=== PATIENT | female | born 1965 | race Caucasian/White ===

== ENCOUNTER 2017-10-27 00:56 | Emergency (ER) | payer MEDICARE, MEDICAID ==
[2017-10-27] MEDS ORDERED: LORazepam INJ* 2 MG/ML 1 ML VIAL IV PUSH ONE (01:09)
[2017-10-27] MEDS ORDERED: Metoprolol Tartrate IV* 1 MG/ML 5 ML VIAL IV ONE (01:09)
[2017-10-27] MEDS ORDERED: NS 0.9% 1000 ML* 1,000 ML IV ONE (01:09)
[2017-10-27 02:03] VITALS: BP 101/60
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
== END 2017-10-27 02:22 | disposition home or self-care (01) ==
LOC: ED 00:56
DX: R00.0 Tachycardia, unspecified (principal); F41.9 Anxiety disorder, unspecified; F17.200 Nicotine dependence, unspecified, uncomplicated; Z88.5 Allergy status to narcotic agent
CPT/HCPCS: 93005; 96374; 96375; 99282; J2060; J3490

== ENCOUNTER 2018-10-14 15:29 | Emergency (ER) | payer MEDICAID, MEDICARE ==
[2018-10-14] MEDS ORDERED: LORazepam TAB(*) 1 MG PO ONE (16:23)
[2018-10-14] MEDS ORDERED: NS 0.9% 1000 ML** 1,000 ML IV ONE (16:23)
--- NOTE | 2018-10-14 16:28 | ED ---
HPI Cardiac - HPI Summary HPI Summary: Patient is a 52 y/o F presenting to ED with complaints of rapid heart rate, palpitations. EMS reported HR in 140s, 86 on arrival. PMHx of anxiety, patient notes that she ran out of Klonopin five days ago. Patient claims that she has not been able to get a refill for her medication. She notes similar episode a year ago, states that she was diagnosed with anxiety at the time. Patient denies chest pain but endorses some dizziness. No Hx of GA, HTN, DVT, PE. PMHx of Psoriasis, smoker, PTSD, anxiety, depression. She is on atrovastatin for HLD , smokes a pack of cigarettes daily. On triage, pain is denied, nothing is noted to aggravate/alleviate Sx. Home medications and allergies are reviewed. - History of Current Complaint Chief Complaint: EDDysrhythmPalp Stated Complaint: RAPID HEART RATE Time Seen by Provider: 10/14/18 15:47 Hx Obtained From: Patient Onset/Duration: Still Present Timing: Constant Current Severity: None - pain denied Pain Intensity: 0 Pain Scale Used: 0-10 Numeric - 0/10 Character: Other: - palpitations Aggravating Factor(s): Nothing Alleviating Factor(s): Nothing Associated Signs and Symptoms: Positive: Dizziness, Palpitations. Negative: Chest Pain - Allergy/Home Medications Allergies/Adverse Reactions: Allergies Allergy/AdvReac Type Severity Reaction Status Date / Time oxycodone [From OxyContin] Allergy Altered Verified 10/14/18 15:32 Mental Status PMH/Surg Hx/FS Hx/Imm Hx Endocrine/Hematology History: Denies: Hx Diabetes Cardiovascular History: Reports: Hx Hypercholesterolemia Denies: Hx Hypertension, Hx Myocardial Infarction Psychiatric History: Reports: Hx Anxiety, Hx Depression, Hx Post Traumatic Stress Disorder - Immunization History Date of Tetanus Vaccine: unk Date of Influenza Vaccine: none Infectious Disease History: No Infectious Disease History: Denies: Traveled Outside the [place] in Last 30 Days - Family History Known Family History: Negative: Blood Disorder - Social History Alcohol Use: Rare Substance Use Type: Reports: None Smoking Status (MU): Heavy Every Day Tobacco Smoker Review of Systems Positive: Palpitations. Negative: Chest Pain Neurological: Other - POSITIVE - DIZZINESS All Other Systems Reviewed And Are Negative: Yes Physical Exam - Summary Physical Exam Summary: GENERAL: Patient is a well-developed and nourished female who is lying comfortable in the stretcher. Patient is not in any acute respiratory distress. Patient is anxious-appearing. HEAD AND FACE: Normocephalic EYES: PERRLA, EOMI x 2. EARS: Hearing grossly intact. MOUTH: Oropharynx within normal limits. NECK: Supple, trachea is midline, no adenopathy, no JVD, no carotid bruit. CHEST: Symmetric, no tenderness at palpation LUNGS: Clear to auscultation bilaterally. No wheezing or crackles. CVS: Regular rate and rhythm, S1 and S2 present, no murmurs or gallops appreciated. ABDOMEN: Soft, non-tender. Bowel sounds are normal. No abdominal abnormal pulsations. EXTREMITIES: Full ROM in all major joints, no edema, no cyanosis or clubbing. NEURO: Alert and oriented x 3. No acute neurological deficits. Speech is normal and follows commands. Triage Information Reviewed: Yes Vital Signs On Initial Exam: Initial Vitals Temp Pulse Resp BP Pulse Ox 98.2 F 87 18 126/78 98 10/14/18 15:32 10/14/18 15:32 10/14/18 15:32 10/14/18 15:32 10/14/18 15:32 Vital Signs Reviewed: Yes Diagnostics - Vital Signs Vital Signs Temp Pulse Resp BP Pulse Ox 10/14/18 15:32 98.2 F 87 18 126/78 98 - Laboratory Result Diagrams: 10/14/18 16:25 10/14/18 16:25 Lab Statement: Any lab studies that have been ordered have been reviewed, and results considered in the medical decision making process. - Radiology chest x-ray Radiology Interpretation Completed By: Radiologist Summary of Radiographic Findings: CXR IMPRESSION: #. Minimal opacity at the LEFT lung base may represent atelectasis or small inflammatory. infiltrate. THIS REPORT WAS REVIEWED BY ED PHYSICIAN. - EKG 1539 Cardiac Rate: NL - RATE OF 65 BPM EKG Rhythm: Sinus Rhythm Summary of EKG Findings: EKG showed sinus rhythm with rate of 65 BPM, benign early repolarization. Re-Evaluation - Re-Evaluation First Eval Re-Evaluation Time: 18:31 Change: Improved Comment: Discussed results with patient and patient reports feeling better. Patient is hemodynamically stable and safe for discharge. Strict return precautions given and patient will otherwise follow up with PCP. Disposition - Course Course Of Treatment: Patient is a 52 y/o F presenting to ED with complaints of rapid heart rate, palpitations. EMS reported HR in 140s, 86 on arrival. PMHx of anxiety, patient notes that she ran out of Klonopin five days ago. Patient claims that she has not been able to get a refill for her medication. She notes similar episode a year ago, states that she was diagnosed with anxiety at the time. Patient denies chest pain but endorses some dizziness. No Hx of GA, HTN, DVT, PE. PMHx of Psoriasis, smoker, PTSD, anxiety, depression. She is on atrovastatin for HLD, smokes a pack of cigarettes daily. On physical exam, patient is noted to be anxious-appearing. CXR IMPRESSION: #. Minimal opacity at the LEFT lung base may represent atelectasis or small inflammatory. infiltrate. EKG showed sinus rhythm with rate of 65 BPM, benign early repolarization. During ED course, patient received fluids, Ativan 1 mg PO ONCE , Librium 25 mg PO ONCE, and Zithromax 500 mg PO ONCE. UA showed trace leukocyte esterase, squamous epith cells present. Labs showed MCV 98, MCH 34, MPV 6.5, absolute monos 0.9, D-dimer < 200, glucose 124, lactic acid 0.9, trop 0 , TSH 0.42. Discussed results with patient and patient reports feeling better. Patient is hemodynamically stable and safe for discharge. Strict return precautions given and patient will otherwise follow up with PCP. - Diagnoses Provider Diagnoses: PNA (pneumonia), Palpitations Discharge - Sign-Out/Discharge Documenting (check all that apply): Patient Departure - discharge Patient Received Moderate/Deep Sedation with Procedure: No - NO PROCEDURES DONE - Discharge Plan Condition: Stable Disposition: HOME Prescriptions: Azithromycin TAB* [Zithromax TAB (Z-MIKE) 250 mg #6 tabs] 2 tab PO .TODAY, THEN 1 DAILY #1 mike LORazepam [Ativan] 1 mg PO TID #3 tablet MDD 3 Patient Education Materials: Heart Palpitations (ED), Pneumonia (ED) Referrals: [facility] [Outside] - 3 Days Additional Instructions: Follow up with your primary care physician in 1-3 days. RETURN TO THE EMERGENCY DEPARTMENT FOR CHANGING OR WORSENING SYMPTOMS. - Billing Disposition and Condition Condition: STABLE Disposition: Home - Attestation Statements Document Initiated by Scribe: Yes Documenting Scribe: SIDNEY MELO Provider For Whom Scribe is Documenting (Include Credential): SANDRA DICKINSON MD Scribe Attestation: I, SIDNEY MELO , scribed for SANDRA DICKINSON MD on 10/14/18 at 2129. Scribe Documentation Reviewed: Yes Provider Attestation: The documentation as recorded by the magiibeSIDNEY accurately reflects the service I personally performed and the decisions made by me, SANDRA DICKINSON MD Status of Scribe Document: Viewed
[2018-10-14 16:31] LABS: Urine Appearance Cloudy; Urine Bacteria Absent (Absent); Urine Bilirubin Negative (Negative); Urine Blood Negative (Negative); Urine Color Yellow; Urine Glucose Negative (Negative); Urine Ketones Negative (Negative); Urine Nitrite Negative (Negative); Urine Protein Negative (Negative); Urine Red Blood Cell Trace(0-2/hpf) (Absent); Urine Specific Gravity 1.005 (1.010-1.030); Urine Squamous Epithelial Cell Present (Absent); Urine Urobilinogen Negative (Negative); Urine White Blood Cell Trace(0-5/hpf) (Absent)
[2018-10-14 16:33] LABS: ABS Basophils 0.1 10^3/ul (0-0.2); ABS Eosinophils 0.1 10^3/ul (0-0.6); ABS Lymphocytes 3.5 10^3/ul (1.0-4.8); ABS Monocytes 0.9 10^3/ul (0-0.8); ABS Neutrophils 5.5 10^3/ul (1.5-7.7); ABS Nucleated RBC 0 10^3/ul; Eosinophil % 1.2 %; Hematocrit 45 % (35-47); Hemoglobin 15.4 g/dl (12.0-16.0); Mean Corpuscular HGB Conc 35 g/dl (31-36); Mean Corpuscular Hemoglobin 34 pg (27-31); Mean Corpuscular Volume 98 fL (80-97); Mean Platelet Volume 6.5 fL (7.4-10.4); Nucleated Red Blood Cells % 0.1; Platelet Count 407 10^3/ul (150-450); Red Blood Count 4.56 10^6/ul (4.00-5.40); Red Cell Distribution Width 13 % (10.5-15); White Blood Count 10.1 10^3/ul (3.5-10.8)
[2018-10-14 16:52] LABS: Activated Partial Thrombo Time 31.7 seconds (26.0-36.3); INR 0.98 (0.77-1.02)
[2018-10-14 16:55] LABS: Albumin 4.8 g/dL (3.2-5.2); Albumin/Globulin Ratio 1.4 (1-3); BUN/Creatinine Ratio 11.2 (8-20); Calcium 9.6 mg/dL (8.6-10.3); EGFR African American 80.9 (>60); EGFR Non-African American 66.9 (>60); Globulin 3.4 g/dL (2-4); Magnesium 2.2 mg/dL (1.9-2.7); Potassium 3.8 mmol/L (3.5-5.0); Total Bilirubin 0.4 mg/dL (0.2-1.0); Total Protein 8.2 g/dL (6.4-8.9)
[2018-10-14 17:15] LABS: TSH (Thyroid Stimulating Horm) 0.42 mcIU/mL (0.34-5.60)
[2018-10-14] MEDS ORDERED: Azithromycin TAB* 250 MG PO ONE (18:15)
[2018-10-14] MEDS ORDERED: chlordiazePOXIDE CAP* 25 MG PO ONE (18:38)
[2018-10-14 19:04] VITALS: BP 124/70
== END 2018-10-14 19:03 | disposition home or self-care (01) ==
LOC: ED 15:29
DX: J18.9 Pneumonia, unspecified organism (principal); R00.2 Palpitations; F41.9 Anxiety disorder, unspecified; E78.5 Hyperlipidemia, unspecified; F17.210 Nicotine dependence, cigarettes, uncomplicated; E78.00 Pure hypercholesterolemia, unspecified; F32.9 Major depressive disorder, single episode, unspecified; Z88.5 Allergy status to narcotic agent
CPT/HCPCS: 36415; 71045; 80053; 81003; 81015; 83605; 83735; 84443; 84484; 85025; 85379; 85610; 85730; 87086; 93005; 96360; 96361; 99283; A9270-GY